=== PATIENT | female | born 1990 | race Caucasian/White ===

== ENCOUNTER 2016-05-23 03:16 | Emergency (ER) | payer OTHER ==
[~2016-05-23] VITALS: Ht 160 cm; Wt 52.2 kg
[~2016-05-23 03:16] MED LIST: AUGMENTIN 875875 MG PO; FLONASE120 SPRAY/ NASB; ROBITUSSIN W/CO10 ML PO
[2016-05-23 03:20] VITALS: BP 98/55
--- NOTE | 2016-05-23 03:24 | ED GI/GU/ABDOMINAL COMPLAINT ---
History of Present Illness General Chief Complaint: Nausea, Vomiting, Diarrhea Stated Complaint: N/V/D Source: patient, family, old records Exam Limitations: no limitations Vital Signs & Intake/Output Vital Signs & Intake/Output Vital Signs Date Time Temp Pulse Resp B/P Pulse O2 O2 Flow FiO2 Ox Delivery Rate 05/23 0320 97.5 90 18 98/55 98 Room Air Allergies Coded Allergies: aspirin (Intermediate, ITCHY SKIN 05/23/16) Reconcile Medications Amoxicillin/Clavulanate Potass (Amox-Clav 875-125 MG Tablet) 875 MG-125 MG TABLET 1 TAB PO BID SINUSITIS Fluticasone Propionate (Flonase) 50 MCG/ACTUATION SPRAY.SUSP 2 SPRAY NASB DAILY SINUSITIS Ondansetron (Zofran Odt) 4 MG TAB.RAPDIS 1 TAB SL TID PRN NAUSEA Robitussin AC (Guaifenesin-Codeine Syrup) 10 ML UDC 2 TSP PO Q6 PRN COUGH/COLD SYMPTOMS Triage Nurses Notes Reviewed? yes ? N Is pt currently ? No HPI: Patient had a viral URI over the weekend with a nonproductive cough and a runny nose with clear discharge. There've been no fever or chills. Tonight at approximately midnight she began vomiting. Patient states she has vomited 5 times since then as well as have copious amounts diarrhea. All walking into the emergency room she felt very lightheaded like she was going to pass out. Positive abdominal cramping and bilateral lower quadrants with left being greater than right. There are no aggravating or mitigating factors. There is no radiation outside of the areas noted above. The cramping pain is 6 out of 10. Past History Medical History Any Pertinent Medical History? see below for history Neurological: NARCOLEPSY Respiratory: asthma, bronchitis, LARYNGITIS Surgical History Surgical History: non-contributory Psychosocial History What is your primary language Citizen [place] Tobacco Use: Never used ETOH Use: occasional use Illicit Drug Use: denies illicit drug use Family History Hx Contributory? No Review of Systems Review of Systems Constitutional: Reports: no symptoms. EENTM: Reports: no symptoms. Respiratory: Reports: no symptoms. Cardiovascular: Reports: no symptoms. GI: Reports: see HPI, abdominal pain, diarrhea, nausea, vomiting. Genitourinary: Reports: no symptoms. Musculoskeletal: Reports: no symptoms. Skin: Reports: no symptoms. Neurological/Psychological: Reports: no symptoms. Hematologic/Endocrine: Reports: no symptoms. Immunologic/Allergic: Reports: no symptoms. All Other Systems: Reviewed and Negative Physical Exam Physical Exam General Appearance: well developed/nourished, alert, awake, anxious, moderate distress Head: atraumatic, normal appearance Eyes: Bilateral: PERRL, EOMI. Ears, Nose, Throat, Mouth: hearing grossly normal, DRY MUCOSA Neck: normal inspection, supple, full range of motion Respiratory: normal breath sounds, chest non-tender, no respiratory distress, lungs clear Cardiovascular: regular rate/rhythm, normal peripheral pulses Gastrointestinal: normal bowel sounds, soft, non-tender, no organomegaly Back: normal inspection, normal range of motion Extremities: normal range of motion Neurologic/Psych: no motor/sensory deficits, awake, alert, oriented x 3, normal gait, normal mood/affect Skin: intact, normal color, warm/dry Core Measures ACS in differential dx? No Severe Sepsis Present: No Septic Shock Present: No Progress Differential Diagnosis: pancreatitis, peptic ulcer, PUD/GERD, VIRAL GASTROENTERITIS Plan of Care: Orders Procedure Date/time Status LIPASE 05/23 0320 Complete HUMAN BETA HCG SCREEN 05/23 032 Complete COMPREHENSIVE METABOLIC PANEL 05/23 032 Complete CBC WITHOUT DIFFERENTIAL 05/23 032 Complete AMYLASE 05/23 0320 Complete Current Medications Sig/Devora Start time Last Medication Dose Stop Time Status Admin Sodium Chloride 1,000 ML BOLUS ONE 05/23 0415 UNVr (Normal Saline 0.9%) 05/23 0514 Laboratory Tests 05/23/16 0330: Anion Gap 12, Estimated GFR > 60, BUN/Creatinine Ratio 18.9, Glucose 106 H, Calcium 9.3, Total Bilirubin 0.6, AST 19, ALT 35, Alkaline Phosphatase 61, Total Protein 6.8, Albumin 4.1, Globulin 2.7, Albumin/Globulin Ratio 1.5, Amylase 63, Lipase 108, Total Beta HCG NEGATIVE, CBC w Diff MAN DIFF ORDERED, RBC 5.09, MCV 90.3, MCH 30.4, RDW 12.9, MPV 7.3 L, Gran % 86.2 H, Lymphocytes % 7.8 L, Monocytes % 4.2, Eosinophils % 1.6, Basophils % 0.2, Absolute Granulocytes 10.8 H, Absolute Lymphocytes 1.0 L, Absolute Monocytes 0.5, Absolute Eosinophils 0.2 , Absolute Basophils 0, Platelet Estimate ADEQUATE, Normocytic RBCs VERIFIED, Normochromic RBCs VERIFIED, PUBS MCHC 33.7 Initial ED EKG: none Comments: PT IS FEELING MUCH BETTER. Departure Departure Disposition: HOME OR SELF CARE Condition: Stable Clinical Impression Primary Impression: Gastroenteritis Referrals: SHAKEEL PENN MD (PCP/Family) Additional Instructions: RETURN IF SYMPTOMS WORSEN OR FOR ANY CONCERNS Departure Forms: Customer Survey General Discharge Information Prescriptions: Current Visit Scripts Ondansetron (Zofran Odt) 1 TAB SL TID PRN NAUSEA #10 TAB
[2016-05-23 03:39] LABS: ABSOLUTE BASOPHIL COUNT 0 /CUMM (0.0-0.2); ABSOLUTE EOSINOPHIL COUNT 0.2 /CUMM (0.0-0.7); ABSOLUTE GRANULOCYTE CT 10.8 /CUMM (1.4-6.5); ABSOLUTE MONOCYTE COUNT 0.5 /CUMM (0.10-0.60); BASOPHIL % 0.2 % (0.0-2.0); EOSINOPHIL % 1.6 % (0-5); GRANULOCYTE % 86.2 % (42.2-75.2); MEAN CORPUSCULAR HGB 30.4 PG (27.0-31.0); MEAN CORPUSCULAR HGB CONC 33.7 G/DL (33.0-37.0); MEAN CORPUSCULAR VOLUME 90.3 FL (81.0-99.0); MEAN PLATELET VOLUME 7.3 FL (7.4-10.4); PLATELET COUNT 280 /CUMM (130-400); RBC DISTRIBUTION WIDTH 12.9 % (11.5-14.5); RED BLOOD CELL CT 5.09 /CUMM (4.20-5.40); WHITE BLOOD CELL COUNT 12.5 /CUMM (4.8-10.8)
[2016-05-23] MEDS ORDERED: ZOFRAN ODT4 M1 SL (04:01)
[2016-05-23] MEDS ORDERED: MODAFINIL200 M1 PO (04:16)
[2016-05-23] MEDS ORDERED: LO LOESTRIN FE1 EACH PO (04:16)
== END 2016-05-23 05:18 ==
LOC: ERH 03:16
PROVIDERS: Emergency Medicine
DX: K52.9 Noninfective gastroenteritis and colitis, unspecified (principal); R42 Dizziness and giddiness
CPT/HCPCS: 96361; 96374; 96375; 99291; J1885; J2405